=== PATIENT | female | born 2000 | race Caucasian/White ===

== ENCOUNTER 2023-09-02 06:05 | Emergency (ER) | payer BC ==
[~2023-09-02] VITALS: Ht 162.6 cm; Wt 59.0 kg
[2023-09-02 06:34] VITALS: BP 106/78; PULSE 78; RESP 16; TEMP 97.4; O2SAT 100
[2023-09-02 07:02] VITALS: O2SAT 99
[2023-09-02] MEDS: EPINEPHrine 1 MG/ML AMP IM ONE (07:16)
[2023-09-02] MEDS: diphenhydrAMINE 50 MG/ML VIAL IM ONE (07:19)
[2023-09-02] MEDS ORDERED: FAMO-90 PO (08:39)
[2023-09-02] MEDS ORDERED: EPIN1KIT31 IM (08:39)
[2023-09-02 09:02] VITALS: BP 109/69; PULSE 87; RESP 20; TEMP 98.2; O2SAT 99
== END 2023-09-02 09:02 | disposition home or self-care (01) ==
LOC: MED 06:05
DX: R22.0 Localized swelling, mass and lump, head (principal); T78.49XA Other allergy, initial encounter; X58.XXXA Exposure to other specified factors, initial encounter
CPT/HCPCS: 96372; 99284; J0171; J1200

== ENCOUNTER 2023-10-25 20:22 | Emergency (ER) | payer BC ==
[~2023-10-25] VITALS: Ht 162.6 cm; Wt 59.0 kg
[~2023-10-25 20:22] MED LIST: EPIN1KIT31 IM; FAMO-90 PO
[2023-10-25 20:40] VITALS: BP 113/68; PULSE 72; RESP 18; TEMP 97.9; O2SAT 98
[2023-10-25] MEDS ORDERED: EPIN1KIT31 IM (23:24)
[2023-10-25] MEDS ORDERED: METH4TAB1 PO (23:24)
[2023-10-25] MEDS ORDERED: WATER STERILE 10 ML MC ONE (23:29)
[2023-10-25] MEDS ORDERED: methylPREDNISolone SS 125 MG/2 ML VIAL ONE (23:29)
[2023-10-25] MEDS: NACL 0.9% 500 ML IV ONE (23:48)
[2023-10-25] MEDS: methylPREDNISolone SS 125 MG in WATER STERILE 2 ML IV SCH (23:49)
[2023-10-26 00:18] VITALS: BP 110/67; PULSE 95; RESP 20; TEMP 98; O2SAT 98
== END 2023-10-26 00:11 | disposition home or self-care (01) ==
LOC: MED 20:22
DX: T78.49XA Other allergy, initial encounter (principal); Z86.69 Personal history of other diseases of the nervous system and sense organs; Z79.899 Other long term (current) drug therapy; X58.XXXA Exposure to other specified factors, initial encounter
CPT/HCPCS: 96361; 96374; 99283; J2930; J7030